=== PATIENT | female | born 1980 | race American Indian/Alaskan Native ===

== ENCOUNTER 2017-11-26 17:29 | Inpatient (IN) | payer BC ==
[2017-11-26] MEDS ORDERED: AMBIEN PO PRN (18:11)
[2017-11-26] MEDS ORDERED: TYLENOL PO PRN (18:11)
[2017-11-26] MEDS ORDERED: COLACE PO PRN (18:11)
[2017-11-26] MEDS ORDERED: TORADOL IV ONE (18:13)
--- NOTE | 2017-11-26 18:17 | History and Physical Report ---
History of Present Illness Date of examination: 11/26/17 Date of admission: 11/26/17 Chief complaint: abdominal pain/ misscarriage History of present illness: I was called by Dr. Bob and pt dx'd with nonviable at EGA of 9 5/7 wks by previous sonogram. Pt c/o passing clots, soaking more than one pad per hour and pelvic pain that "comes and goes." At time of arrival to ER pain was not as bad as it was at the [facility] office but still was intense. Pt admitted for observation and and monitoring for possible need for D&C. [facility] provider did not send sono with pt so will try to obtain. Menstrual History Regularity: regular Menses every: 28 days Duration: 5-7 LMP: 07/29/2016 LMP reliability: definite LMP character: normal test type: urine test Date: 09/28/2016 BC at conception: none Planned ? yes EDC Calculations LMP: 05/05/2017 EDC Confirmation: 05/05/2017 Gestational Age: 8 5/7 weeks Past History : 8 Term Births: 0 Premature Births: 1 Living Children: 0 Para: 1 Mult. Births: 0 Prev : 0 Aborta: 6 Elect. Ab: 0 Spont. Ab: 6 Ectopics: 0 # 1 Delivery date: 2004 Weeks Gestation: 6 Delivery type: SAB Comments: No D&C # 2 Delivery date: 07/2005 Weeks Gestation: 16 Delivery type: SAB Delivery location: [place] Comments: PPROM induction D&C done for retained myomas diagnosed # 3 Delivery date: 2005 Weeks Gestation: 13-15 Delivery type: SAB Delivery location: [place] Comments: Bleeding dilated cervix with myoma labor induced D&C done # 4 Delivery date: 04/2009 Weeks Gestation: 21 Delivery type: Delivery location: [facility] Comments: cerclage done @ 12 weeks then emergency repeat done @ 16 weeks Bulging bag @ 21 wks # 5 Delivery date: 2011 Weeks Gestation: 6 Delivery type: SAB # 6 Delivery date: 2012 Weeks Gestation: 14 Delivery type: SAB Delivery location: [facility] [place] Comments: Cerclage @12 week/ bulging bag # 7 Delivery date: 12/19/2015 Weeks Gestation: 15 Delivery type: SAB Delivery location: [facility] [place] Comments: PPROM no cerclage done Past Medical History: Reviewed history from 05/25/2016 and no changes required: Incompetent cervix Past Surgical History: Reviewed history from 05/25/2016 and no changes required: LSC Myomectomy (2006) D&C: (2004) D&C: (2005) Cervical Cerclage (2008, 2012) Tranadbominal cerclage (04/04/2016) Past Medical History Abnormal PAP: negative Uterine Anomaly: positive 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 Genetic History ADVANCED MATERNAL AGE Congenital Heart Defect: Mom: no Dad: no [place] Disease: Mom: no Dad: no Thalassemia Mom: no Dad: no Neural Tube Defect Mom: no Dad: no Down's Syndrome Mom: no Dad: no Marcus-Sachs Mom: no Dad: no Sickle Cell Disease/Trait Mom: no Dad: no Hemophilia Mom: no Dad: no Muscular Dystrophy Mom: no Dad: no Cystic Fibrosis Mom: no Dad: no [place] Chorea Mom: no Dad: no Mental Retardation Mom: no Dad: no Fragile X Mom: no Dad: no Other Genetic/Chromosomal Disorder Mom: no Dad: no Child w/other defect Mom: no Dad: no Enviromental Exposures Xray Exposure: no Medication, drug, or alcohol use since LMP: no Chemical/Other Exposure: no Exposure to Cat Liter: no Hx of Parvovirus (Fifth Disease): no Active Medications (reviewed today): FORMULA 27-1 MG ORAL TABS ( VIT-FE FUMARATE-FA) 1 po q day as directed Current Allergies (reviewed today): No known allergies Past History Past Medical History: other (see hpi) Past Surgical History: other (see hpi) Family/Genetic History: other (see hpi) Social history: no significant social history, Medications and Allergies Allergies Allergy/AdvReac Type Severity Reaction Status Date / Time No Known Allergies Allergy Unverified 11/26/17 18:17 - Physical Exam Lungs: Positive: Normal air movement Abdomen: Positive: normal appearance, soft. Negative: distention, tenderness, guarding Genitourinary (Female): Positive: other (deferred until pt has had dose of pain meds) Results Result Diagrams: 11/26/17 18:29 All other labs normal. Assessment and Plan - Patient Problems (1) Missed Current Visit: Yes Status: Acute Plan to address problem: -obtain sono frm [facility]FM -closely monitor bleeding -exam after pain meds are given as pt c/o having intense pain -monitor bp closely as it is elevated but likely pain related as pt has no h/o HTH -plan of care d/w pt and RN who was at bedside with initial consultation with pt.
[2017-11-26 19:23] LABS: Basophils # (Auto) 0.1 K/mm3 (0.0-0.1); Basophils % (Auto) 0.7 % (0.0-1.8); Eosinophils # (Auto) 0.2 K/mm3 (0.0-0.4); Eosinophils % (Auto) 1.8 % (0.0-4.3); Hematocrit 36.3 % (30.3-42.9); Hemoglobin 11.8 gm/dl (10.1-14.3); Lymphocytes # (Auto) 2.4 K/mm3 (1.2-5.4); Lymphocytes % (Auto) 28.8 % (13.4-35.0); Mean Corpuscular HGB Conc 33 % (30-34); Mean Corpuscular Hemoglobin 29 pg (28-32); Mean Corpuscular Volume 89 fl (79-97); Monocytes % (Auto) 11.4 % (0.0-7.3); Platelet Count 307 K/mm3 (140-440); Red Blood Count 4.07 M/mm3 (3.65-5.03); Red Cell Distribution Width 16.8 % (13.2-15.2)
[2017-11-26] MEDS: LACTATED RINGERS 1,000 ML IV SCH (21:22)
--- NOTE | 2017-11-26 21:55 | Event Note ---
Date: 11/26/17 pt states she was told by [facility] that she passed the fetus but still had clots in uterus which he felt here being held in by the cerclage. Pt has passed several large clots since being admitted including the clot she just passed as provider was at bedside. Official sono was not sent with pt for provider to review. We will there for repeat sono in the am. Pain management at this time. pt does report relief in pain with the toradol that was given IV. She has no questions but if needed would prefer to have a D&C. i d/w that if she blood that was seen in the uterus several hours ago, she may have passed what was present and a procedure not be needed. Exam shows no active bleeding and cx os appears minimally dilated. pt tolerated exam well. Bp has been elevated but this is believed to be due to pain pt was having . Will closely monitor at this time.
[2017-11-26] MEDS ORDERED: NORCO 5/325 PO PRN (22:00)
[2017-11-27] MEDS: LACTATED RINGERS 1,000 ML IV SCH ×2 (04:40→14:05)
--- NOTE | 2017-11-27 07:48 | Event Note ---
Date: 11/27/17 (Director Of Valuation note) Patient reports pain is decreased and bleeding is decreased as compared to yesterday. Waiting for u/s this AM to determine if she needs D&C. Will contact [facility] for u/s from yesterday when office opens.
--- NOTE | 2017-11-27 09:24 | Ultrasound Report ---
ULTRASOUND PELVIC COMPLETE HISTORY: Spontaneous . COMPARISON: None. TECHNIQUE: Transabdominal ultrasound with color doppler interrogation. FINDINGS: The uterus is enlarged measuring 17 x 10 x 10 cm. No discrete uterine fibroids are identified. The cervix is obscured. The endometrium is thickened and complex measuring up to 5.2 cm. There is trace internal flow on color Doppler interrogation. The arteries are of normal size, contour and echotexture. No pelvic fluid collection. IMPRESSION: Thickened and complex endometrium consistent with retained products of conception.
[2017-11-27] MEDS ORDERED: PRENATAL VITAMIN PO SCH (10:00)
--- NOTE | 2017-11-27 13:09 | Progress Note ---
Assessment and Plan - Patient Problems (1) Spontaneous Current Visit: Yes Status: Acute Plan to address problem: Patient states bleeding and pain better. US report and images reviewed, thickened endometrium noted. Possible retained tissue vs clots. Report discussed with patient, options reviewed: medical therapy vs D&C, risks of bleeding, infection, perforation explained, consent was reviewed and signed, she voiced understanding and desires to proceed with D&C. Subjective - Subjective Date of service: 11/27/17 Interval history: Spontaneously with abdominal cerclage Objective - Vital Signs Latest vital signs: Vital Signs Temp Pulse Pulse Resp BP BP Pulse Ox 11/27/17 07:45 98.9 F 97 H 20 138/82 11/27/17 04:30 98.4 F 96 H 18 136/90 97 11/26/17 23:25 98.4 F 87 20 135/83 97 11/26/17 20:15 102 H 11/26/17 19:37 99.1 F 91 H 20 151/99 100 11/26/17 18:23 97.9 F 103 H 20 157/107 99 Intake and Output 11/26/17 11/27/17 11/27/17 22:59 06:59 14:59 Intake Total 480 1152.5 Balance 480 1152.5 Intake: IV 912.5 Lactated Ringers 1,000 ml 912.5 @ 125 mls/hr IV DIRECT JULIANO Rx#:[id number] Oral 480 240 Other: Total, Intake Amount 480 240 Voiding Method Toilet Toilet # Voids Void 2 1 Weight 108.8 kg - Labs Labs: Abnormal lab results 11/26/17 Range/Units 18:29 RDW 16.8 H (13.2-15.2) % [place] % (Auto) 11.4 H (0.0-7.3) % [place] # 1.0 H (0.0-0.8) K/mm3
[2017-11-27] MEDS ORDERED: VERSED ONE (13:28)
[2017-11-27] MEDS ORDERED: SUBLIMAZE ONE (13:28)
[2017-11-27] MEDS ORDERED: ZEMURON IV ONE (13:28)
[2017-11-27] MEDS ORDERED: ZOFRAN ONE (13:28)
[2017-11-27] MEDS ORDERED: XYLOCAINE MPF 2% ONE (13:28)
[2017-11-27] MEDS ORDERED: DIPRIVAN 10 MG/ML IV ONE (13:28)
--- NOTE | 2017-11-27 13:45 | Anesthesia Day of Surgery ---
Anesthesia Day of Surgery - Day of Surgery Patient Examined: Yes Patient H&P Reviewed: Yes Patient is NPO: Yes
--- NOTE | 2017-11-27 13:45 | Anesthesia Consultation ---
Anesthesia Consult and Med Hx Date of service: 11/27/17 - Airway Anesthetic Teeth Evaluation: Good ROM Head & Neck: Adequate Mental/Hyoid Distance: Adequate Mallampati Class: Class II Intubation Access Assessment: Probably Good - Pulmonary Exam CTA: Yes - Cardiac Exam Cardiac Exam: RRR - Pre-Operative Health Status ASA Pre-Surgery Classification: ASA2, Emergency Proposed Anesthetic Plan: General - Pulmonary Hx Asthma: No COPD: No Hx Pneumonia: No - Central Nervous System Hx Psychiatric Problems: No - Endocrine Hx End Stage Renal Disease: No - Hematic Hx Anemia: Yes - Other Systems Hx Cancer: No - Additional Comments Anesthesia Medical History Comments: Informed consent obtained
[2017-11-27] MEDS ORDERED: METHERGINE IM ONE ×3 (13:46→14:56)
[2017-11-27] MEDS ORDERED: PERCOCET 5/325 PO PRN (13:46)
[2017-11-27] MEDS ORDERED: SILVER NITRATE TP ONE (13:50)
[2017-11-27] MEDS ORDERED: VERSED IV NR (14:00)
[2017-11-27] MEDS: DILAUDID IV PRN ×3 (14:05→15:46)
[2017-11-27] MEDS ORDERED: NACL 0.9% IR ONE (14:59)
[2017-11-27] MEDS ORDERED: ANCEF ONE (15:17)
[2017-11-27] MEDS ORDERED: NEO SYNEPHRINE ONE (15:17)
--- NOTE | 2017-11-27 15:22 | Discharge Summary ---
Providers - Providers Date of Admission: 11/27/17 08:57 Date of discharge: 11/27/17 Attending physician: CHAUNCEY VARGAS Primary care physician: LUIS LAU Hospitalization Condition: Good Procedures: Suction D&C Hospital course: uncomplicated Disposition: DC-01 TO HOME OR SELFCARE - Discharge Diagnoses (1) Spontaneous Status: Acute Core Measure Documentation - Palliative Care Palliative Care/ Comfort Measures: Not Applicable - Core Measures Any of the following diagnoses?: none Exam - Constitutional Vitals: Temp Pulse Resp BP Pulse Ox 98.5 F 91 H 20 136/87 100 11/27/17 13:30 11/27/17 13:30 11/27/17 14:05 11/27/17 13:30 11/27/17 13:30 General appearance: Present: no acute distress - Respiratory Respiratory effort: normal - Cardiovascular Rhythm: regular - Abdominal General gastrointestinal: Present: soft - Psychiatric Psychiatric: appropriate mood/affect, intact judgment & insight Plan Activity: other (no sex) Weight Bearing Status: Weight Bear as Tolerated Diet: regular Special Instructions: no heavy lifting Additional Instructions: A written work excuse had been signed and placed on her chart for her Follow up with: WARREN ALCAZAR MD [Staff Physician] - 12/03/17 10:30 am ([place]) Forms: Work/School Release Form Prescriptions: Ibuprofen [Motrin 800 MG tab] 800 mg PO TID PRN #30 tablet PRN Reason: Pain Methylergonovine Maleate [Methergine] 0.2 mg PO Q6H #4 tablet oxyCODONE /ACETAMINOPHEN [Percocet 5/325 mg] 1 - 2 tab PO Q4HR PRN #12 tablet PRN Reason: Pain
--- NOTE | 2017-11-27 15:35 | Operative Report ---
Operative Report Operative Report: Date: 11/27/2017 Preoperative diagnosis: Incomplete Postoperative diagnosis: Incomplete Procedure: Suction dilation and curettage Surgeon: Milena Wong MD Surgical Corsetier: [] Anesthesiologist: [] Anesthesia: Gen. anesthesia EBL: 50 mL Findings: Exam under anesthesia revealed the uterus to be approximately 15 weeks andf ixed. Cervix was dilated to approximately 1 cm. Uterus was sounded to 9 cm. Procedure: After risks benefits complication" and alternatives to this procedure discussed patient and her and she was understanding and desired to proceed, she was taken to the OR where general anesthesia was induced. She was placed in the dorsolithotomy position. Exam under anesthesia as above. She was then prepped and draped in the usual sterile fashion. The bladder was drained of approximately 50 mL of clear yellow urine. Operative speculum was introduced into the vagina and the anterior lip of the cervix was then grasped with a ring clamp. The cervix was dilated to allow the 9 mm curved Vacurette. Suction curettage at 50 mmHg pressure was performed. Contents of the uterus were evacuated. Then gentle uterine curettage was performed. Once no further tissue was removed the procedure was ended. Speculum and ring clamp were removed and manual uterine massage was performed. Patient was given Methergine 0.2 mg IM. No bleeding from the cervix was noted. The procedure was then ended. Patient was taken to recovery room stable condition.
[2017-11-27 16:49] VITALS: BP 143/93
== END 2017-11-27 20:45 | disposition home or self-care (01) | DRG 770 ==
LOC: ED 17:29 → OB 18:51 → OBSVTOIN 11-27 08:57
PROVIDERS: ADMIT Obstetrics & Gynecology; ATTEND Obstetrics & Gynecology
PROC: 10D17Z9 Manual Extraction of Products of Conception, Retained, Via Natural or Artificial Opening (ICD-10-PCS; principal; 2017-11-27)
DX: O03.4 Incomplete spontaneous abortion without complication (principal)
CPT/HCPCS: 36415; 76856; 85025; 86850; 86900; 86901; 88305; G0378; J0690; J1170; J1885; J2210; J2250; J2370; J2405; J2704; J3010; J7120

== ENCOUNTER 2019-02-07 10:34 | Outpatient (CLI) | payer BC ==
--- NOTE | 2019-02-07 14:05 | Mammography Report ---
BILATERAL DIGITAL SCREENING MAMMOGRAM WITH CAD:02/07/19 10:30:00 CLINICAL: Baseline screening. FINDINGS: The breasts are heterogeneously dense, which may obscure small masses.No mass, architectural distortion or suspicious calcifications. IMPRESSION: No mammographic evidence of malignancy. BI-RADS CATEGORY: 1 -- Negative RECOMMENDATION: Routine mammographic screening in one year. ACR BI-RADS MAMMOGRAPHIC CODES: 0 = Needs additional imaging evaluation; 1 = Negative; 2 = Benign; 3 = Probably benign; 4 = Suspicious; 5 = Malignant; 6 = Known biopsy-proven malignancy COMMENT: 1. Dense breast tissue, i.e., adenosis, fibrocystic changes, etc., may obscure an underlying neoplasm. 2. Approximately 10% of cancers are not detected with mammography. 3. A negative mammography report should not delay biopsy if a clinically suspicious mass is present.
== END 2019-02-07 10:35 | disposition home or self-care (01) ==
LOC: SPVWC 10:34
PROVIDERS: ATTEND Obstetrics & Gynecology
DX: Z12.31 Encounter for screening mammogram for malignant neoplasm of breast (principal)
CPT/HCPCS: 77067

== ENCOUNTER 2019-09-16 06:07 | Observation (INO) | payer BC ==
--- NOTE | 2019-09-10 12:29 | Anesthesia Consultation ---
Anesthesia Consult and Med Hx Date of service: 09/10/19 - Airway Anesthetic Teeth Evaluation: Good ROM Head & Neck: Adequate Mental/Hyoid Distance: Adequate Mallampati Class: Class I Intubation Access Assessment: Good - Pulmonary Exam CTA: Yes - Cardiac Exam Cardiac Exam: RRR - Pre-Operative Health Status ASA Pre-Surgery Classification: ASA2 Proposed Anesthetic Plan: General - Pulmonary Hx Asthma: No COPD: No Hx Pneumonia: No - Cardiovascular System Hx Hypertension: No - Central Nervous System Hx Neuromuscular Disorder: No Hx Psychiatric Problems: No - Gastrointestinal Hx Gastroesophageal Reflux Disease: Yes - Endocrine Hx Renal Disease: No Hx Non-Insulin Dependent Diabetes: No - Hematic Hx Anemia: Yes - Other Systems Hx Alcohol Use: No Hx Cancer: No Hx Obesity: Yes
[2019-09-10 12:33] LABS: Basophils # (Auto) 0.1 K/mm3 (0.0-0.1); Basophils % (Auto) 1.6 % (0.0-1.8); Eosinophils # (Auto) 0.1 K/mm3 (0.0-0.4); Hematocrit 29.5 % (30.3-42.9); Hemoglobin 9.2 gm/dl (10.1-14.3); Lymphocytes # (Auto) 1.9 K/mm3 (1.2-5.4); Lymphocytes % (Auto) 34.4 % (13.4-35.0); Mean Corpuscular HGB Conc 31 % (30-34); Mean Corpuscular Volume 87 fl (79-97); Monocytes # (Auto) 0.8 K/mm3 (0.0-0.8); Monocytes % (Auto) 13.7 % (0.0-7.3); Platelet Count 375 K/mm3 (140-440); Red Blood Count 3.39 M/mm3 (3.65-5.03); Red Cell Distribution Width 18.2 % (13.2-15.2)
[2019-09-10 12:35] LABS: BUN/Creatinine Ratio 10; Blood Urea Nitrogen 6 mg/dL (7-17); Calcium 9.2 mg/dL (8.4-10.2); Hemolysis Index 7
--- NOTE | 2019-09-15 17:17 | History and Physical Report ---
History of Present Illness Date of examination: 09/10/19 Chief complaint: Menorrhagia, pelvic pain, dysmenorrhea and fibroids History of present illness: The patient has concerns regarding menstrual disorder. The symptoms began at menarche. The patient complains of heavy bleeding, history of fibroids and cramping, but denies spotting, menses, lack of menses,she may be , h istory of thyroid disease, history of bleeding disorders, lightheadness, orthostatic symptoms and fatigue. Menstrual periods have been with excessive flow. Menstrual flow lasts 7 days. Bleeds heavy 5-7days and has pain 3/7days of her periods. Bleeding has been unresponsive to Lysteda and KELLIE's. The patient states pian is suprapubic pain, but denies fever and chills. The patient denies any nausea and vomiting. Past History : 9 Term Births: 0 Premature Births: 1 Living Children: 0 Para: 1 Mult. Births: 0 Prev : 0 Aborta: 7 Elect. Ab: 0 Spont. Ab: 7 Ectopics: 0 # 1 Delivery date: 2004 Weeks Gestation: 6 Delivery type: SAB Comments: No D&C # 2 Delivery date: 07/2005 Weeks Gestation: 16 Delivery type: SAB Delivery location: [place] Comments: PPROM induction D&C done for retained myomas diagnosed # 3 Delivery date: 2005 Weeks Gestation: 13-15 Delivery type: SAB Delivery location: [place] Comments: Bleeding dilated cervix with myoma labor induced D&C done # 4 Delivery date: 04/2009 Weeks Gestation: 21 Delivery type: Delivery location: [facility] Comments: cerclage done @ 12 weeks then emergency repeat done @ 16 weeks Bulging bag @ 21 wks # 5 Delivery date: 2011 Weeks Gestation: 6 Delivery type: SAB # 6 Delivery date: 2012 Weeks Gestation: 14 Delivery type: SAB [place] [facility] [place]: Cerclage @12 week/ bulging bag # 7 Delivery date: 12/19/2015 Weeks Gestation: 15 Delivery type: SAB [place] [facility] [place]: PPROM no cerclage done # 8 Delivery date: 10/05/2016 Weeks Gestation: 9 Delivery type: SAB Delivery location: [place] Comments: Transabdominal cerclage in place 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 of genital herpes: no Hx of STD: none Active Medications (reviewed today): FERROUS SULFATE 325 (65 FE) MG ORAL TABLET (FERROUS SULFATE) 1 po qd MULTIVITAMINS ORAL CAPSULE (MULTIPLE VITAMIN) IBUPROFEN 200 MG ORAL CAPSULE (IBUPROFEN) Current Allergies (reviewed today): No known allergies Past Medical History: Reviewed history from 05/25/2016 and no changes required: Incompetent cervix Past Surgical History: Reviewed history from 12/09/2018 and no changes required: LSC Myomectomy (2006) D&C: (2004) D&C: (2005) Cervical Cerclage (2008, 2012, ) Transadbominal cerclage (04/04/2016) D&C: (11/27/2017) Family History Summary: Reviewed history Last on 12/03/2017 and no changes required:09/15/2019 Mother (biol.) - Has Family History of Cervical Cancer - Entered On: 02/03/2019 PGF - Has Family History Colon Cancer - Entered On: 02/03/2019 Other family member - Has No Family History of Biliary Tract Cancer - Entered On: 08/15/2019 Other family member - Has No Family History of Breast Cancer - Entered On: 08/15/2019 Other family member - Has No Family History of Brain Cancer - Entered On: 08/15/2019 Other family member - Has No Family History of Spontaneous DVT-PE - Entered On: 08/15/2019 Other family member - Has No Family History of Kidney/Urinary Tract Cancer - Entered On: 08/15/2019 Other family member - Has No Family History of Ovarvian Cancer - Entered On: 08/15/2019 Other family member - Has No Family History of Pancreatic Cancer - Entered On: 08/15/2019 Other family member - Has No Family History of Stomach Cancer - Entered On: 08/15/2019 Other family member - Has No Family History of Small Bowel Cancer - Entered On: 08/15/2019 Other family member - Has No Family History of Uterine Cancer - Entered On: 08/15/2019 Social History: Reviewed history from 02/10/2016 and 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 Risk Factors: Smoked Tobacco Use: Never smoker Smokeless Tobacco Use: Never Passive smoke exposure: no Drug use: no HIV high-risk behavior: no Alcohol use: no Exercise: no Seatbelt use: 100 % Mammogram History: Date of Last Mammogram: 09/10/2019 Results: 01/2019 PAP Smear History: Date of Last PAP Smear: 12/09/2018 Previous Tobacco Use: Signed On - 07/21/2019 Smoked Tobacco Use: Never smoker Smokeless Tobacco Use: Never Passive smoke exposure: no Drug use: no HIV high-risk behavior: no Previous Alcohol Use: Signed On - 07/21/2019 Alcohol use: no Exercise: no Seatbelt use: 100 % Dietary Counseling: pn yes Mammogram History: Date of Last Mammogram: 09/10/2019 Results: 01/2019 PAP Smear History: Date of Last PAP Smear: 12/09/2018 Physical Exam Appearance: well developed, well nourished, no acute distress Other Exams Lungs: no rales, rhonchi, or wheezes Heart: S1, S2, no murmur, rub, or gallop Genitourinary Exam Uterus: deferred fro EUA Impression & Recommendations: Problem # 1: Menorrhagia (ICD-626.2) (GHE24-H40.0) Diagnosis explained to patient . Questions answered. Discussed with patient various medical and surgical therapies common for treatment: Hormonal/medical th erapy,endometrial ablation or hysterectomy. Diagnosis explained to patient . Discussed with patient various medical, surgical and radiological therapies common for treatment including, but not limited to, myomectomy, hysterectomy and uterine artery embolization. Discussed risks and benefits of laparotomy, laparoscopy, vaginal and robotic assisted approaches for hysterectomies. Patient desires definitive treatment in the form of robot assisted laparoscopic total hysterectomy. The risks and alternatives for this surgery were reviewed with the patient. She was informed of the risks of the surgery including, but not limited to, pain, infection, bleeding possibly heavy enough to require a blood transfusion with associated risks of infections (hepatitis and HIV) and transfusion reactions, possible damage to bowel, bladder or ureter(s). Patient understands that this surgery with make her sterile. Indications to abort a robotic/laparoscopic procedure and perform an open procedure were explained. Patient understands if her ovaries are removed she will become menopausal. Patient advised the small risks of spreading of malignancy if morcellation is required during the surgery patient understands and approves performing if necessary. Questions answered. Consent reviewed and signed The patient was instructed/informed the following: The normal length of hospital stay for this procedure. Nothing to eat or drink after midnight the evening prior to surgery. Clear liquids the day before surgery. Pre-op instruction sheets given. Instructed to discontinue NSAIDs immediately. Wound care instructions given. Problem # 2: Intramural leiomyoma of uterus (ICD-218.1) (KCR68-L65.1) Diagnosis explained to patient . Questions answered. Discussed with patient various medical, surgical and radioloigal therapies common for treatment: Hormonal/medical therapy, fibroid embolization, removal of fibroids or hysterectomy She desires to proceed with hysterectom Problem # 3: Dysmenorrhea (ICD-625.3) (APR38-Z75.6) Problem # 4: Pelvic and perineal pain (ICD-789.00) (YEW84-V83.2) Endometriosis and the optimal treatment in the form of removal of both ovaries for this diagnosis was explained. She desires ovarian conservation. She was informed she may require surgery later to have her ovaries removed for a benign or mailgnant condition It was extensively explained to her that her pain may persist, recur or change in nature due to the difficulty with diagnosis chronic pelvic pain or development of adhesions. She declined other treatment options at this time. Questions were encouraged and answered. Medications and Allergies Allergies Allergy/AdvReac Type Severity Reaction Status Date / Time No Known Allergies Allergy Verified 09/10/19 11:45 Home Medications Medication Instructions Recorded Confirmed Last Taken Type Ferrous Sulfate [Iron 325 MG] 325 mg PO DAILY 09/10/19 09/10/19 Unknown History Multivit-Min/Iron/Folic/Lutein 1 each PO DAILY 09/10/19 09/10/19 Unknown History [Centrum Silver Women Tablet] Active Meds: Active Medications Celecoxib (Celebrex) 200 mg PO PREOP NR Stop: 09/16/19 23:00 Fentanyl (Sublimaze) 100 mcg IV ONCE PRN PRN Reason: sedation for nerve block Gabapentin (Gabapentin) 300 mg PO PREOP NR Stop: 09/16/19 23:00 Lactated Ringer's (Lactated Ringers) 1,000 mls @ 100 mls/hr IV DIRECT JULIANO Midazolam HCl (Versed) 2 mg IV PREOP NR Stop: 09/16/19 23:00 Exam Vital Signs Temp Pulse Resp BP Pulse Ox 98.1 F 88 20 140/94 99 09/10/19 11:30 09/10/19 11:30 09/10/19 11:30 09/10/19 11:30 09/10/19 11:30 Results - Labs 09/10/19 11:30 09/10/19 11:30 Assessment and Plan - Patient Problems (1) Fibroids Status: Chronic (2) Menorrhagia Status: Acute (3) Pelvic pain Status: Chronic (4) Dysmenorrhea Status: Chronic
[~2019-09-16 06:07] MED LIST: CELECOXIB 200 MG CAP PO NR; GABAPENTIN 300 MG CAP PO NR; LACTATED RINGERS 1,000 ML IV SCH; MIDAZOLAM 2 MG/2 ML INJ IV NR; ceFAZolin/Water 2 GM/20 ML 2 GM/20 ML SYRINGE IV NR; fentaNYL 100 MCG/2 ML INJ IV PRN
[2019-09-16] MEDS ORDERED: BACTERIOSTATIC SODIUM CHLORIDE 0.9% 30 ML VIAL INFILTRATI ONE (06:49)
[2019-09-16] MEDS ORDERED: cloNIDine/PF 1,000 MCG/10 ML VIAL EP ONE (07:18)
[2019-09-16] MEDS ORDERED: dexAMETHasone 4 MG/ML VIAL ONE (07:18)
[2019-09-16] MEDS ORDERED: BUPIVACAINE-EPINEPHRINE/PF 0.25%-1:200,000 (30 ML) VIAL INFILTRATI ONE (07:18)
[2019-09-16] MEDS ORDERED: LIDOCAINE (1%) 10 MG/1 ML VIAL 20 ML MDV ONE (07:18)
[2019-09-16] MEDS ORDERED: HYDROmorphone 1 MG/1 ML INJ ONE (07:26)
[2019-09-16] MEDS ORDERED: NEOMY 40 MG/POLYMYXIN B 200,000 UNITS/ML (GU) AMPULE IR ONE ×2 (07:26→08:44)
[2019-09-16] MEDS ORDERED: ROCURONIUM 50 MG/5 ML INJ IV ONE ×3 (07:27→10:22)
[2019-09-16] MEDS ORDERED: PROPOFOL 200 MG/20 ML VIAL IV ONE (07:27)
[2019-09-16] MEDS ORDERED: LIDOCAINE MPF (2%) 20 MG/1 ML VIAL 5 ML ONE (07:28)
--- NOTE | 2019-09-16 07:32 | Anesthesia Day of Surgery ---
Anesthesia Day of Surgery - Day of Surgery Patient Examined: Yes Patient H&P Reviewed: Yes Patient is NPO: Yes
[2019-09-16] MEDS ORDERED: dexAMETHasone 20 MG/5 ML VIAL ONE (08:40)
[2019-09-16] MEDS ORDERED: ONDANSETRON 4 MG/2 ML INJ ONE ×3 (08:40→12:03)
[2019-09-16] MEDS ORDERED: SODIUM CHLORIDE 0.9% IRRIG SOLN 2000 ML IR ONE (08:44)
[2019-09-16] MEDS ORDERED: PHENYLEPHRINE/NS 1,000 MCG/10 ML SYRINGE (OR USE) IV ONE (09:38)
--- NOTE | 2019-09-16 10:25 | Procedure Note ---
Date of procedure: 09/16/19 Pre-op diagnosis: intraoperative consult Post-op diagnosis: same Procedure: Primary repair of abdominal wall hernia Inspection of colon Findings: Called by Dr. Wong to evaluate colon and abdominal wall after lysis of adhesions during robotic hysterectomy. Colon was densely adhered to right lower abdominal wall in the pelvis from a prior surgery. Lysis of adhesions was already performed by Dr. Wong. In order to facilitate adhesiolysis and prevent injury to the bowel, the peritoneum and a small portion of the fascia, preperioneal fat, and muscle was cut. This was left attached to the colon wall. This left a small gap in the fascia measuring approximately 2.5-3 cm, essentially creating a hernia. The colon was inspected and was intact. No evidence of colonic injury or spillage. There was preperitoneal fat and exposed on the surface of the colon. This was oversown with 3-0 vloc running stitch. The hernia of the abdominal wall was primarily closed using running 0-vloc running stitch. There was no bleeding seen. Dr. Wong continued her portion of the procedure. The patient remained in stable condition. Anesthesia: GETA Surgeon: IVONNE GLASS Estimated blood loss: minimal Pathology: none Condition: stable Disposition: other (OR for remainder of procedure by Dr. Wong)
[2019-09-16] MEDS ORDERED: NEOSTIGMINE 10MG/10 ML INJ MDV ONE (12:02)
[2019-09-16] MEDS ORDERED: GLYCOPYRROLATE 0.4 MG/2 ML INJ ONE (12:03)
[2019-09-16] MEDS ORDERED: KETOROLAC 30 MG/1 ML INJ ONE (12:19)
[2019-09-16] MEDS: HYDROmorphone 1 MG/1 ML INJ IV PRN ×3 (12:37→12:58)
--- NOTE | 2019-09-16 12:51 | Post Operative Note ---
Pre-op diagnosis: menorrhagia, fibroids, pelvic pain Post-op diagnosis: same (pelvic/ abdmominal adhesions) Procedure: RATH/ (B) salpingectomy, CLARISSA repair abdominal wall hernia, oversew of bowel adhesion Anesthesia: GETA Surgeon: WARREN Renteria) Appointment Coordinator: IVONNE GLASS Estimated blood loss: other (150mL) Pathology: list Specimen disposition: to lab Condition: stable Disposition: PACU
[2019-09-16] MEDS ORDERED: LACTATED RINGERS 1,000 ML ONE (13:22)
[2019-09-16] MEDS ORDERED: ACETAMINOPHEN 650 MG RECT SUPP PR PRN (14:07)
[2019-09-16] MEDS ORDERED: MORPHINE 2 MG/1 ML INJ IV PRN (14:07)
[2019-09-16] MEDS ORDERED: METOCLOPRAMIDE 10 MG TAB PO PRN (14:07)
[2019-09-16] MEDS ORDERED: METOCLOPRAMIDE 10 MG/2 ML INJ IV PRN (14:07)
[2019-09-16] MEDS ORDERED: ONDANSETRON 4 MG/2 ML INJ IV PRN (14:07)
[2019-09-16] MEDS ORDERED: LACTATED RINGERS 1,000 ML IV SCH (14:07)
[2019-09-16] MEDS ORDERED: MORPHINE 4 MG/1 ML INJ IV PRN (14:07)
[2019-09-16] MEDS ORDERED: ONDANSETRON 4 MG ODT TAB PO PRN (14:07)
[2019-09-16] MEDS ORDERED: oxyCODONE /ACETAMINOPHEN 5-325MG TAB PO PRN (14:07)
[2019-09-16] MEDS ORDERED: ACETAMINOPHEN 325 MG TAB PO PRN (14:07)
--- NOTE | 2019-09-16 14:25 | Post Anesthesia Evaluation ---
- Post Anesthesia Evaluation Patient Participated: Yes Airway Patent: Yes Stable Respiratory Function: Yes Nausea/Vomiting: No Temp > 96.8F: Yes Pain Manageable: Yes Adequeate Hydration: Yes Anesthesia Complications: No Block Receding Appropriately: Not Applicable (block for post op analgesia)
--- NOTE | 2019-09-16 15:59 | Operative Report ---
Operative Report Operative Report: Date: 09/16/2019 Preoperative diagnosis: 1. Menorrhagia 2. Uterine fibroids 3. Body mass index of 36.9 kg/m 4. Pelvic pain 5. Dysmenorrhea Postoperative diagnosis: 1. Menorrhagia 2. Uterine fibroids 3. Body mass index of 36.9 kg/m 4. Pelvic pain 5. Dysmenorrhea 6. Pelvic and abdominal adhesions Procedure: 1. Robotic-assisted laparoscopic total hysterectomy with bilateral salpingectomy 2. Lysis of adhesions 3. Repair of abdominal wall hernia Surgeon: Milena Wong MD Co-surgeon: Jacqueline Pereira MD Deicer Repairer Electric: Jing Renteria Anesthesiologist: Dr. Diego Reynolds Anesthesia: General endotracheal anesthesia EBL: Approximately 150 mL Findings: Exam under anesthesia revealed uterus to be approximately 15 cm and fixed. Uterus was sounded to 12 cm. Grossly normal tubes and ovaries. Also uterine fibroids. Procedure: Patient was taken to the OR and placed in the supine position. General anesthesia was induced and an oral gastric tube was placed. Her neck and head were placed on foam support. Foam eye protection with goggles were secured in place. Then foam face protection was placed and secured. Foam shoulder pads were then positioned on her shoulders for Trendelenburg positioni ng. She was then placed in dorsolithotomy position. Exam under anesthesia unremarkable, however difficult to palpate due to body mass index. The abdomen and vagina were then prepped and draped in the usual sterile fashion. Timeout was performed. A Nelson catheter was inserted into the bladder with drainage of clear yellow urine. The operative speculum was introduced into the vagina and the anterior lip of the cervix was grasped with single-toothed tenaculum. The uterus was sounded to 12cm. The cervix was progressively dilated to allow the medium V care uterine manipulator. The bulb of the manipulator was inflated and the speculum and tenaculum were removed. The cup of the manipulator was placed around the cervix and the blue occluder of the manipulator was properly positioned in the vagina. A laparotomy sponge that was saturated with a solution of polymyxin and saline was placed in the vagina to ensure pneumoperitoneum. Sterile gloves were placed and attention was turned to the abdomen. A 10 mm midline vertical supraumbilical incision was made approximately 10 cm superior to the elevated fundus of the uterus. A 12 mm trocar with the laparoscope and camera attached was introduced through this incision under direct visualization. The abdomen was insufflated. No obvious bowel, bladder, ureteral, or major vascular injury was noted. The patient was then placed in steep Trendelenburg position and the following trochars were placed under direct visualization: 8 mm robotic trochars were placed through incisions made in the bilateral midclavicular lower abdominal region approximately 10 cm lateral to the midline incision, and a 5 mm trocar was placed through an incision made in the right lower lateral pelvis. The 10 mm laparoscope was then replaced by a 5 mm laparoscope that was placed through the 5 millimeter lateral trocar. The 12 mm trocar was then removed and the Yuriy Caicedo fascial closure device was placed through the incision and a 0 Vicryl was placed through the fascia. Once the suture was secured the 12 mm trocar was reintroduced. Once the trochars were in the appropriate positions, the da Catarino robot system was engaged. The EndoShears and bipolar device was placed through the 8 mm trochars and positioned then attention was turned to the console. There was small bowel densely adhesed to the anterior abdominal wall that heart removal in order to safely proceed. Ensure no injury to the bowel wide excision and release of the bowel was performed. On inspecting the anterior abdominal wall and appeared the fascia was entered. Also when looking at the bowel concern for bowel injury prompted consultation with Dr. Pereira intraoperatively. Repair of the abdominal wall defect was performed. There is no obvious evidence of serosal nor luminal injury to the bowel however the adipose tissue was attached the bowel during the release is oversewn to ensure hemostasis. Please see her operative note. Then attention was turned to the uterus. The uterus was elevated and bilateral salpingectomy was performed. Each tube was removed through the 5 mm trocar and sent to pathology in separate containers. Then the utero-ovarian ligaments were clamped, cauterized and incised bilaterally using 30 W of energy. Then the round ligaments were clamped, cauterized and incised bilaterally. The adhesions of the bladder to the anterior lower uterine segment were released carefully. This tissue was noted to be thick due to her previous surgery. However with careful dissection, the anterior leaf of the broad ligament was elevated and with careful blunt and sharp dissection the bladder flap was created and dissected away from the lower uterine segment and cervix. The posterior leaf of the broad ligament was dissected away from the uterine vessels. The cup of the uterine manipulator was palpated anteriorly and posteriorly. The paracervical tissue was very dense thick however again with careful sharp dissection the uterine vessels were able to be visualized. Patient was known to have an abdominal cerclage still intact. There was no obvious evidence of the cerclage however speak previously mentioned the tissue was dense thick and firm. The uterine vessels were then clamped and cauterized bilaterally. Blanching of the uterus was then noted. Attention was again turned to the anterior lower uterine segment and the bladder was confirmed to be away from the operative field. Then attention was turned again to the anterior where the cup of the manipulator was palpated and a colpotomy was performed down to the cup. The incision was extended in the lateral position to the uterine vessels that were again clamped and cauterized and incised. Continuing along the cup of the manipulator in a circumferential manner the colpotomy was completed. Sterile gloves and gown were placed and attention was turned to the vagina where the uterus and cervix were bivalved to facilitate removal through the vaginal incision. The pelvis was irrigated with warm normal saline. A moist laparotomy sponge was placed in the vagina to maintain pneumoperitoneum. Attention was turned back to the console. The vagina cuff was reapproximated using V LOC 180 suture. Then a J stitch was performed to secure the suture. Again the pelvis was copiously irrigated with polymixin in warm normal saline. The laparotomy sponge was removed from the vagina. No obvious evidence of bowel, bladder, ureteral, or major vascular injury was noted. Once hemostasis was noted, Michael was applied to the operative field to ensure hemostasis. Again hemostasis was noted. Then the instruments were removed, the robot was disengaged. The 12 mm trocar was removed and the fascia was ligated with the 0 Vicryl suture that was placed at the beginning of the procedure. The patient was taken out of Trendelenburg position, the abdomen was desufflated, the remaining trochars were removed. Incisions were reapproximated using 4-0 Vicryl in a subcuticular manner. . Surgiseal was placed over the other incisions. The vagina was then inspected, the cuff was palpated to be intact and no bleeding was noted and clear yellow urine was draining into the Nelson bag from the bladder at the end of the procedure. Counts were correct 3.Patient was taken to recovery room in stable condition. Patient tolerated procedure well.
[2019-09-16] MEDS: ceFAZolin/NS 1 GM/50 ML 1 GM/50 ML BAG IV SCH ×2 (16:40→23:45)
[2019-09-16] MEDS: KETOROLAC 30 MG/1 ML INJ IV SCH (18:47)
[2019-09-16] MEDS ORDERED: FAMOTIDINE 20 MG/2 ML INJ IV SCH (22:00)
--- NOTE | 2019-09-16 22:19 | Progress Note ---
Assessment and Plan Resting in bed, copious clear urine in sanchez bag and tube No complaints. Operative findings and procedure discussed with patient, plan of care explained. She voiced understanding and agrees with POC - Patient Problems (1) Fibroids Current Visit: No Status: Chronic (2) Menorrhagia Current Visit: No Status: Acute (3) Pelvic pain Current Visit: No Status: Chronic (4) Dysmenorrhea Current Visit: No Status: Chronic Subjective - Subjective Date of service: 09/16/19 Principal diagnosis: DOS s/p ELDER, CLARISSA, (B) s'gectomy, abd wall defect repair, Interval history: The patient has concerns regarding menstrual disorder. The symptoms began at menarche. The patient complains of heavy bleeding, history of fibroids and cramping, but denies spotting, menses, lack of menses,she may be , history of thyroid disease, history of bleeding disorders, lightheadness, orthostatic symptoms and fatigue. Menstrual periods have been with excessive flow. Menstrual flow lasts 7 days. Bleeds heavy 5-7days and has pain 3/7days of her periods. Bleeding has been unresponsive to Lysteda and KELLIE's. The patient states pian is suprapubic pain, but denies fever and chills. The patient denies any nausea and vomiting. Past History : 9 Term Births: 0 Premature Births: 1 Living Children: 0 Para: 1 Mult. Births: 0 Prev : 0 Aborta: 7 Elect. Ab: 0 Spont. Ab: 7 Ectopics: 0 # 1 Delivery date: 2004 Weeks Gestation: 6 Delivery type: SAB Comments: No D&C # 2 Delivery date: 07/2005 Weeks Gestation: 16 Delivery type: SAB Delivery location: [place] Comments: PPROM induction D&C done for retained myomas diagnosed # 3 Delivery date: 2005 Weeks Gestation: 13-15 Delivery type: SAB Delivery location: [place] Comments: Bleeding dilated cervix with myoma labor induced D&C done # 4 Delivery date: 04/2009 Weeks Gestation: 21 Delivery type: Delivery location: [facility] Comments: cerclage done @ 12 weeks then emergency repeat done @ 16 weeks Bulging bag @ 21 wks # 5 Delivery date: 2011 Weeks Gestation: 6 Delivery type: SAB # 6 Delivery date: 2012 Weeks Gestation: 14 Delivery type: SAB [place] [facility] [place]: Cerclage @12 week/ bulging bag # 7 Delivery date: 12/19/2015 Weeks Gestation: 15 Delivery type: SAB Delivery [place] [facility] [place] Comments: PPROM no cerclage done # 8 Delivery date: 10/05/2016 Weeks Gestation: 9 Delivery type: SAB Delivery location: [place] Comments: Transabdominal cerclage in place 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 of genital herpes: no Hx of STD: none Active Medications (reviewed today): FERROUS SULFATE 325 (65 FE) MG ORAL TABLET (FERROUS SULFATE) 1 po qd MULTIVITAMINS ORAL CAPSULE (MULTIPLE VITAMIN) IBUPROFEN 200 MG ORAL CAPSULE (IBUPROFEN) Current Allergies (reviewed today): No known allergies Past Medical History: Reviewed history from 05/25/2016 and no changes required: Incompetent cervix Past Surgical History: Reviewed history from 12/09/2018 and no changes required: LSC Myomectomy (2006) D&C: (2004) D&C: (2005) Cervical Cerclage (2008, 2012, ) Transadbominal cerclage (04/04/2016) D&C: (11/27/2017) Family History Summary: Reviewed history Last on 12/03/2017 and no changes required:09/15/2019 Mother (biol.) - Has Family History of Cervical Cancer - Entered On: 02/03/2019 PGF - Has Family History Colon Cancer - Entered On: 02/03/2019 Other family member - Has No Family History of Biliary Tract Cancer - Entered On: 08/15/2019 Other family member - Has No Family History of Breast Cancer - Entered On: 08/15/2019 Other family member - Has No Family History of Brain Cancer - Entered On: 08/15/2019 Other family member - Has No Family History of Spontaneous DVT-PE - Entered On: 08/15/2019 Other family member - Has No Family History of Kidney/Urinary Tract Cancer - Entered On: 08/15/2019 Other family member - Has No Family History of Ovarvian Cancer - Entered On: 08/15/2019 Other family member - Has No Family History of Pancreatic Cancer - Entered On: 08/15/2019 Other family member - Has No Family History of Stomach Cancer - Entered On: 08/15/2019 Other family member - Has No Family History of Small Bowel Cancer - Entered On: 08/15/2019 Other family member - Has No Family History of Uterine Cancer - Entered On: 08/15/2019 Social History: Reviewed history from 02/10/2016 and 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 Risk Factors: Smoked Tobacco Use: Never smoker Smokeless Tobacco Use: Never Passive smoke exposure: no Drug use: no HIV high-risk behavior: no Alcohol use: no Exercise: no Seatbelt use: 100 % Mammogram History: Date of Last Mammogram: 09/10/2019 Results: 01/2019 PAP Smear History: Date of Last PAP Smear: 12/09/2018 Previous Tobacco Use: Signed On - 07/21/2019 Smoked Tobacco Use: Never smoker Smokeless Tobacco Use: Never Passive smoke exposure: no Drug use: no HIV high-risk behavior: no Previous Alcohol Use: Signed On - 07/21/2019 Alcohol use: no Exercise: no Seatbelt use: 100 % Dietary Counseling: pn yes Mammogram History: Date of Last Mammogram: 09/10/2019 Results: 01/2019 PAP Smear History: Date of Last PAP Smear: 12/09/2018 Physical Exam Appearance: well developed, well nourished, no acute distress Other Exams Lungs: no rales, rhonchi, or wheezes Heart: S1, S2, no murmur, rub, or gallop Genitourinary Exam Uterus: deferred fro EUA Impression & Recommendations: Problem # 1: Menorrhagia (ICD-626.2) (SKH07-W47.0) Diagnosis explained to patient . Questions answered. Discussed with patient various medical and surgical therapies common for treatment: Hormonal/medical therapy,endometrial ablation or hysterectomy. Diagnosis explained to patient . Discussed with patient various medical, surgical and radiological therapies common for treatment including, but not limited to, myomectomy, hysterectomy and uterine artery embolization. Discussed risks and benefits of laparotomy, laparoscopy, vaginal and robotic assisted approaches for hysterectomies. Patient desires definitive treatment in the form of robot assisted laparoscopic total hysterectomy. The risks and alternatives for this surgery were reviewed with the patient. She was informed of the risks of the surgery including, but not limited to, pain, infection, bleeding possibly heavy enough to require a blood transfusion with associated risks of infections (hepatitis and HIV) and transfusion reactions, possible damage to bowel, bladder or ureter(s). Patient understands that this surgery with make her sterile. Indications to abort a robotic/laparoscopic procedure and perform an open procedure were explained. Patient understands if her ovaries are removed she will become menopausal. Patient advised the small risks of spreading of malignancy if morcellation is required during the surgery patient understands and approves performing if necessary. Questions answered. Consent reviewed and signed The patient was instructed/informed the following: The normal length of hospital stay for this procedure. Nothing to eat or drink after midnight the evening prior to surgery. Clear liquids the day before surgery. Pre-op instruction sheets given. Instructed to discontinue NSAIDs immediately. Wound care instructions given. Problem # 2: Intramural leiomyoma of uterus (ICD-218.1) (HQT92-A80.1) Diagnosis explained to patient . Questions answered. Discussed with patient various medical, surgical and radioloigal therapies common for treatment: Hormonal/medical therapy, fibroid embolization, removal of fibroids or hysterectomy She desires to proceed with hysterectom Problem # 3: Dysmenorrhea (ICD-625.3) (NMK25-T38.6) Problem # 4: Pelvic and perineal pain (ICD-789.00) (SHD36-B04.2) Endometriosis and the optimal treatment in the form of removal of both ovaries for this diagnosis was explained. She desires ovarian conservation. She was informed she may require surgery later to have her ovaries removed for a benign or mailgnant condition It was extensively explained to her that her pain may persist, recur or change in nature due to the difficulty with diagnosis chronic pelvic pain or development of adhesions. She declined other treatment options at this time. Questions were encouraged and answered. Patient reports: appetite normal, pain well controlled Objective - Vital Signs Latest vital signs: Vital Signs Temp Pulse Resp BP BP Pulse Ox 09/16/19 17:00 97.8 F 89 20 125/79 100 09/16/19 13:45 98 F 84 18 128/79 99 09/16/19 13:00 97.2 F L 80 14 126/80 100 09/16/19 12:45 78 16 127/76 100 09/16/19 12:35 78 16 128/78 100 09/16/19 12:30 79 16 121/77 100 09/16/19 12:25 97.0 F L 84 17 124/79 100 09/16/19 08:18 18 09/16/19 07:41 88 14 128/69 98 09/16/19 07:39 89 16 126/74 100 09/16/19 07:36 89 16 132/77 100 09/16/19 07:32 96 H 17 141/75 100 09/16/19 07:30 94 H 18 131/75 95 09/16/19 07:27 83 14 131/76 100 09/16/19 07:24 84 13 135/82 100 09/16/19 07:21 18 09/16/19 07:16 85 12 140/79 100 09/16/19 06:50 18 09/16/19 06:35 98.5 F 89 18 134/75 98 09/16/19 06:30 98.5 F 89 18 134/75 98 Intake and Output 09/16/19 09/16/19 09/16/19 06:59 14:59 22:59 Intake Total 500 120 Output Total 480 750 Balance 20 -630 Intake: IV 500 Oral 120 Output: Urine 480 750 Indwelling Catheter 750 Other: Total, Intake Amount 120 Total, Output Amount 500 Voiding Method Toilet Indwelling Catheter - Exam Breasts: Present: deferred Cardiovascular: Present: Regular rate Lungs: Present: Clear to auscultation, Normal air movement Abdomen: Present: normal appearance, soft, normal bowel sounds. Absent: distention Extremities: Present: normal. Absent: tenderness Incision: Present: normal, dry, intact
[2019-09-17] MEDS: KETOROLAC 30 MG/1 ML INJ IV SCH (04:01)
[2019-09-17 06:04] LABS: Hematocrit 26.1 % (30.3-42.9); Hemoglobin 8.3 gm/dl (10.1-14.3)
--- NOTE | 2019-09-17 07:25 | Discharge Summary ---
Providers - Providers Date of Admission: 09/16/19 12:37 Date of discharge: 09/17/19 Attending physician: WARREN ALCAZAR Primary care physician: ANTONINA SAUNDERS Hospitalization Reason for admission: menorrhagia Condition: Good Procedures: RATH w/ (B) salpingectomy, abdominal defect repair and oversew adhesion on bowel Hospital course: Unremarkable, see op note Disposition: [id number] TO HOME OR SELFCARE - Discharge Diagnoses (1) Fibroids Status: Resolved (2) Menorrhagia Status: Resolved (3) Pelvic pain Status: Chronic (4) Dysmenorrhea Status: Resolved (5) History of robot-assisted laparoscopic hysterectomy Status: Acute (6) Status post bilateral salpingectomy Status: Acute (7) Pelvic adhesions Status: Chronic (8) Chronic anemia Status: Chronic (9) Anemia Status: Acute Qualifiers: Other causes of anemia: acute posthemorrhagic Comment: Asymptomatic, she will continue iron daily Core Measure Documentation - Palliative Care Palliative Care/ Comfort Measures: Not Applicable - Core Measures Any of the following diagnoses?: none Exam - Physical Exam Narrative exam: Resting in bed, +void, no complaint of lightheadedness or dizziness with ambulation. No bleeding - Constitutional Vitals: Temp Pulse Resp BP Pulse Ox 99.4 F 103 H 20 105/71 98 09/17/19 04:44 09/17/19 04:44 09/17/19 04:44 09/17/19 04:44 09/17/19 04:44 General appearance: Present: no acute distress - Neck Neck: Present: supple - Respiratory Respiratory effort: normal Respiratory: bilateral: CTA - Cardiovascular Rhythm: regular - Extremities Extremities: no ischemia, No edema - Abdominal General gastrointestinal: Present: soft, non-tender, non-distended, normal bowel sounds - Integumentary Integumentary: Present: clear, warm, dry (Incisions c/d/i) - Psychiatric Psychiatric: appropriate mood/affect, intact judgment & insight, memory intact, cooperative - Neurologic Neurologic: CNII-XII intact Plan Activity: other (Nno sex, no driving. Ambulate on your property ~1mile a day. Stay on your property until your MD visit.Use your incentive spirometer every hour while awake. Void every hour while awake. ) Weight Bearing Status: Full Weight Bearing Diet: regular Wound: open to air, keep clean and dry Special Instructions: no heavy lifting (greater than 15lbs) Care Plan Goals: full recovery w/o complications Plan of Treatment: Follow in office as scheduled Health Concerns: Importance of VTE, atelectasis, infection prevention discussed Assessment: Allow discharge home Follow up with: ANTONINA SAUNDERS MD [Primary Care Provider] - 7 Days WARREN ALCAZAR MD [Staff Physician] - (as scheduled) Prescriptions: oxyCODONE /ACETAMINOPHEN [Percocet 5/325 mg] 1 - 2 tab PO Q6H PRN #14 tablet PRN Reason: Pain, Moderate (4-6)
[2019-09-17 08:31] VITALS: BP 119/74
--- NOTE | 2019-09-17 11:27 | Progress Note ---
Assessment and Plan 39 yo F s/p RATH/ (B) salpingectomy, CLARISSA repair abdominal wall hernia, oversew of bowel adhesion, POD 1 Plan: 1. adv diet as ivis 2. prn PO pain control per VOCATIONAL REHABILITATION TECHNICIAN service 3. Discussed weight lifting restrictions with patient for next 4 weeks. She understands 4. DC pending per Dr. Wong Will s/o. Thank you, please call with questions Subjective Date of service: 09/17/19 Narrative: Pt seen and examined. c/o abdominal soreness near incisions. No f/c, cp, sob. Tolerating a diet. Objective Vital Signs - 12hr 09/17/19 09/17/19 04:44 08:20 Temperature 99.4 F 99.4 F Pulse Rate 103 H 98 H Respiratory 20 20 Rate Blood Pressure 105/71 Blood Pressure 119/74 [Left] O2 Sat by Pulse 98 100 Oximetry - General physical appearance Narrative Exam: Gen; AAOx3. NAD CV: s1, S2+ resp: even and unlabored Abd: soft, ND, NT. incisions c/d/i Ext: no c/c/e - Labs 09/17/19 05:44 09/10/19 11:30
== END 2019-09-17 14:30 | disposition home or self-care (01) ==
LOC: OR 06:07 → OB 12:37
PROVIDERS: ADMIT Obstetrics & Gynecology; ATTEND Obstetrics & Gynecology
DX: D25.9 Leiomyoma of uterus, unspecified (principal); N92.0 Excessive and frequent menstruation with regular cycle; R10.2 Pelvic and perineal pain; N94.6 Dysmenorrhea, unspecified; N73.6 Female pelvic peritoneal adhesions (postinfective); Z90.710 Acquired absence of both cervix and uterus; Z90.79 Acquired absence of other genital organ(s); Z98.890 Other specified postprocedural states
CPT/HCPCS: 36415; 58572; 64450; 80048; 81025; 85014; 85018; 85025; 86850; 86900; 86901; 88302; 88307; 96365; 96366; 96375; 96376; A4217; G0378; J0690; J0735; J1100; J1170; J1885; J2250; J2370; J2405; J2704; J2710; J2765; J3010; J7120; S2900